=== PATIENT | female | born 2000 | race Two or more races ===

== ENCOUNTER → 2024-07-30 09:55 | Outpatient (CLI) | payer OTHER | END | disposition home or self-care (01) | LOC: PRENATAL 09:55 | PROVIDERS: ATTEND Obstetrics & Gynecology Maternal & Fetal Medicine | DX: O36.80X0 Pregnancy with inconclusive fetal viability, not applicable or unspecified (principal); Z36.82 Encounter for antenatal screening for nuchal translucency; O99.280 Endocrine, nutritional and metabolic diseases complicating pregnancy, unspecified trimester; Z14.8 Genetic carrier of other disease; Z3A.13 13 weeks gestation of pregnancy ==

== ENCOUNTER → 2024-08-11 | Emergency (ER) | payer OTHER ==
[~2024-08-11] VITALS: Ht 165.1 cm; Wt 67.6 kg
[~2024-08-11] MED LIST: LEVOTHYROXINE25 MCG; OBSTETRIX ONE1 EAC1
== END | disposition home or self-care (01) ==
LOC: ER 13:36
DX: Z34.90 Encounter for supervision of normal pregnancy, unspecified, unspecified trimester (principal); Z3A.16 16 weeks gestation of pregnancy; M54.50 Low back pain, unspecified

== ENCOUNTER 2024-09-06 11:11 | Emergency (ER) | payer OTHER ==
[~2024-09-06] VITALS: Ht 165.1 cm; Wt 69.4 kg
[2024-09-06] MEDS ORDERED: LAMICTAL100 M1 (12:13)
[2024-09-06 16:01] LABS: BASO % 0.2 % (0.1-1.2); EOS # 0.05 (0.04-0.54); EOS % 0.3 % (0.7-7.0); LYMPH # 1.41 (1.18-3.74); LYMPH % 8.6 % (19.3-53.1); MEAN PLATELET VOLUME 9.30 fl (9.4-12.4); MONO # 1.20 (0.24-0.82); MONO % 7.3 % (4.7-12.5); NEUT # 13.72 (1.56-6.13); NEUT % 83.2 % (34.0-71.1); RED CELL DISTRIBUTION WIDTH 12.7 % (11.6-14.4)
[2024-09-06 16:18] LABS: ALT/SGPT 29.0 U/L (12-78); AST/SGOT 22.0 U/L (15-37); BILIRUBIN TOTAL 0.33 mg/dL (0.3-1.2); BUN CREA RATIO 12.0 (7.0-25.0); CREATININE SERUM 0.51 mg/dL (0.55-1.02); GFR 146.93; GLOBULINA 3.9 G/DL (2.4-3.5); GLUCOSE FASTING 68.0 mg/dL (65-100); OSMOLALITY SERUM 277.0 MOSM/KG (275-295)
[2024-09-06 16:28] LABS: URINE APPEARANCE Cloudy; URINE BILIRRUBIN Negative (NEGATIVE); URINE BLOOD Negative; URINE COLOR Yellow; URINE GLUCOSE Negative (NEGATIVE); URINE LEUKOCYTE Trace; URINE NITRATE Negative; URINE PROTEIN Trace (NEGATIVE); URINE UROBILINOGEN 1.0 E.U./dl
[2024-09-06 16:32] LABS: URINE BACTERIA 9701.7 uL (0.0-1933); URINE EPITHELIAL CELLS 38.9 uL (0.0-38.8); URINE RBC 15.2 uL (0.0-20.8); URINE WBC 123.5 uL (0.0-23.2)
[2024-09-06 16:46] LABS: COVID-19 AG NEGATIVE (NEGATIVE)
[2024-09-06 17:03] LABS: URINE CAST 1.17 uL (0.0-1.40); URINE KETONE 80 (NEGATIVE)
[2024-09-06 17:06] LABS: URINE YEAST NEGATIVE /hpf
[2024-09-06] MEDS ORDERED: GILTUSS HONEY118 ML PO (18:06)
[2024-09-06] MEDS ORDERED: AMOX-CLAV 875-1 EACH PO (18:06)
== END 2024-09-06 19:05 | disposition home or self-care (01) ==
LOC: ER 11:11
PROVIDERS: General Practice
DX: Z34.90 Encounter for supervision of normal pregnancy, unspecified, unspecified trimester (principal); Z3A.19 19 weeks gestation of pregnancy; N39.0 Urinary tract infection, site not specified; J02.9 Acute pharyngitis, unspecified; E03.8 Other specified hypothyroidism; Z20.822 Contact with and (suspected) exposure to COVID-19

== ENCOUNTER 2024-09-15 08:58 | Outpatient (CLI) | payer OTHER ==
[~2024-09-15 08:58] MED LIST changes: +AMOX-CLAV 875-1 EACH PO; +GILTUSS HONEY118 ML PO; +LAMICTAL100 M1
== END 2024-09-15 08:59 | disposition home or self-care (01) ==
LOC: PRENATAL 08:58
DX: O44.00 Complete placenta previa NOS or without hemorrhage, unspecified trimester (principal); O99.280 Endocrine, nutritional and metabolic diseases complicating pregnancy, unspecified trimester; Z3A.20 20 weeks gestation of pregnancy

== ENCOUNTER 2024-11-07 09:01 | Outpatient (CLI) | payer OTHER | END 2024-11-07 09:06 | disposition home or self-care (01) | LOC: PRENATAL 09:01 | PROVIDERS: ATTEND Obstetrics & Gynecology Maternal & Fetal Medicine | DX: O26.849 Uterine size-date discrepancy, unspecified trimester (principal); O99.280 Endocrine, nutritional and metabolic diseases complicating pregnancy, unspecified trimester; Z3A.28 28 weeks gestation of pregnancy ==

== ENCOUNTER → 2024-12-19 07:51 | Outpatient (CLI) | payer OTHER | END | disposition home or self-care (01) | LOC: PRENATAL 07:51 | PROVIDERS: ATTEND Obstetrics & Gynecology Maternal & Fetal Medicine | DX: O26.849 Uterine size-date discrepancy, unspecified trimester (principal); O36.8130 Decreased fetal movements, third trimester, not applicable or unspecified; O99.280 Endocrine, nutritional and metabolic diseases complicating pregnancy, unspecified trimester; Z3A.34 34 weeks gestation of pregnancy ==

== ENCOUNTER 2025-01-20 13:30 | Inpatient (IN) | payer OTHER ==
[~2025-01-20] VITALS: Ht 162.6 cm; Wt 80.7 kg
[2025-01-20 14:50] LABS: BASO % 0.2 % (0.1-1.2); EOS # 0.04 (0.04-0.54); EOS % 0.5 % (0.7-7.0); LYMPH # 2.31 (1.18-3.74); LYMPH % 27.5 % (19.3-53.1); MEAN PLATELET VOLUME 10.10 fl (9.4-12.4); MONO # 0.64 (0.24-0.82); MONO % 7.6 % (4.7-12.5); NEUT # 5.37 (1.56-6.13); NEUT % 64.0 % (34.0-71.1); RED CELL DISTRIBUTION WIDTH 12.4 % (11.6-14.4)
[2025-01-20 14:52] LABS: URINE APPEARANCE Clear; URINE BILIRRUBIN Negative (NEGATIVE); URINE BLOOD Trace; URINE COLOR Yellow; URINE GLUCOSE Negative (NEGATIVE); URINE KETONE Trace (NEGATIVE); URINE LEUKOCYTE Negative; URINE NITRATE Negative; URINE PROTEIN Trace (NEGATIVE); URINE UROBILINOGEN 1.0 E.U./dl
[2025-01-20 14:53] LABS: URINE BACTERIA 1410.0 uL (0.0-1933); URINE EPITHELIAL CELLS 15.8 uL (0.0-38.8); URINE RBC 6.4 uL (0.0-20.8); URINE WBC 22.3 uL (0.0-23.2)
[2025-01-20 15:03] LABS: URINE CAST 0.14 uL (0.0-1.40)
[2025-01-20 15:15] LABS: INR 0.94
[2025-01-20 16:01] LABS: ALT/SGPT 22.0 U/L (12-78); AST/SGOT 21.0 U/L (15-37); BILIRUBIN TOTAL 0.26 mg/dL (0.3-1.2); BUN CREA RATIO 13.0 (7.0-25.0); CREATININE SERUM 0.53 mg/dL (0.55-1.02); GFR 139.44; GLOBULINA 3.6 G/DL (2.4-3.5); GLUCOSE FASTING 81.0 mg/dL (65-100); OSMOLALITY SERUM 275.0 MOSM/KG (275-295)
[2025-01-27 07:12] VITALS: BP 121/88
[2025-01-27] MEDS ORDERED: MISOPROSTOL 25 MCG/4 ML GEL.W.APPL VAG ONE ×3 (07:45→21:15)
[2025-01-27 08:13] LABS: BASO % 0.2 % (0.1-1.2); EOS # 0.08 (0.04-0.54); EOS % 0.7 % (0.7-7.0); LYMPH # 2.82 (1.18-3.74); LYMPH % 25.6 % (19.3-53.1); MEAN PLATELET VOLUME 10.60 fl (9.4-12.4); MONO # 0.81 (0.24-0.82); MONO % 7.3 % (4.7-12.5); NEUT # 7.26 (1.56-6.13); NEUT % 65.8 % (34.0-71.1); RED CELL DISTRIBUTION WIDTH 12.3 % (11.6-14.4)
[2025-01-27 08:19] LABS: URINE APPEARANCE Cloudy; URINE BILIRRUBIN Negative (NEGATIVE); URINE BLOOD Small; URINE COLOR Yellow; URINE GLUCOSE Negative (NEGATIVE); URINE KETONE Negative (NEGATIVE); URINE LEUKOCYTE Negative; URINE NITRATE Negative; URINE PROTEIN Trace (NEGATIVE); URINE UROBILINOGEN 0.2 E.U./dl
[2025-01-27 08:22] LABS: URINE CAST 1.75 uL (0.0-1.40); URINE EPITHELIAL CELLS 61.2 uL (0.0-38.8); URINE RBC 6.8 uL (0.0-20.8); URINE WBC 82.9 uL (0.0-23.2)
[2025-01-27] MEDS ORDERED: SYNTHROID50 MCG PO (08:24)
[2025-01-27] MEDS ORDERED: PRENATAL TABLE1 EAC1 PO (08:26)
[2025-01-27 08:50] LABS: ALT/SGPT 22.0 U/L (12-78); AST/SGOT 21.0 U/L (15-37); BILIRUBIN TOTAL 0.25 mg/dL (0.3-1.2); BUN CREA RATIO 18.0 (7.0-25.0); CREATININE SERUM 0.45 mg/dL (0.55-1.02); GFR 168.42; GLOBULINA 3.6 G/DL (2.4-3.5); GLUCOSE FASTING 86.0 mg/dL (65-100); LDH 196.0 U/L (84-246); OSMOLALITY SERUM 279.0 MOSM/KG (275-295)
[2025-01-27 09:02] LABS: INR 0.96
[2025-01-27] MEDS ORDERED: MISOPROSTOL 25 MCG/4 ML GEL.W.APPL ONE (10:59)
[2025-01-27 11:11] VITALS: BP 126/80
[2025-01-27 15:35] VITALS: BP 124/79
[2025-01-27 19:19] VITALS: BP 122/68
[2025-01-27 23:21] VITALS: BP 122/71
[2025-01-28 04:51] VITALS: BP 125/78
[2025-01-28 07:47] VITALS: BP 126/69
[2025-01-28] MEDS ORDERED: PATIENTS OWN MEDICATION (MEDICAMENTO EN PISO) PO SCH (09:00)
[2025-01-28] MEDS ORDERED: LEVOTHYROXINE SODIUM 50 MCG TABLET PO NR (09:30)
[2025-01-28] MEDS ORDERED: MISOPROSTOL 25 MCG/4 ML GEL.W.APPL VAG ONE (11:45)
[2025-01-28 12:05] VITALS: BP 123/81
[2025-01-28 15:19] VITALS: BP 121/77
[2025-01-28] MEDS ORDERED: CEFAZOLIN SODIUM 1,000 MG VIAL IV ONE (17:45)
[2025-01-28] MEDS ORDERED: ERYTHROMYCIN BASE OPHT 1GM EACH TUBE OP ONE (20:22)
[2025-01-28] MEDS ORDERED: OXYTOCIN 10 UNITS/ML VIAL ONE (20:22)
[2025-01-28] MEDS ORDERED: CEFAZOLIN SODIUM 1,000 MG VIAL ONE ×2 (20:25→20:44)
[2025-01-29] MEDS ORDERED: OXYTOCIN 10 UNITS/ML VIAL ONE (00:12)
[2025-01-29] MEDS ORDERED: NALOXONE HCL 0.4 MG/ML AMPUL IV PRN (00:15)
[2025-01-29] MEDS ORDERED: OXYTOCIN 1,000 ML IV SCH (00:15)
[2025-01-29] MEDS ORDERED: PROMETHAZINE HCL 25 MG/ML AMPUL IM PRN (01:00)
[2025-01-29 01:40] VITALS: BP 130/80
[2025-01-29] MEDS ORDERED: LEVOTHYROXINE SODIUM 50 MCG TABLET PO SCH (06:00)
[2025-01-29] MEDS ORDERED: MORPHINE SULFATE 4 MG/ML CARTRIDGE IV PRN (06:00)
[2025-01-29 08:00] VITALS: BP 124/82
[2025-01-29] MEDS ORDERED: DOCUSATE SODIUM 100MG CAP PO SCH (09:00)
[2025-01-29] MEDS ORDERED: SIMETHICONE 125 MG CAPSULE PO SCH (09:00)
[2025-01-29] MEDS ORDERED: PNV,CALCIUM 72/IRON/FOLIC ACID 1 TAB TABLET PO SCH (09:00)
[2025-01-29 09:51] LABS: BASO % 0.3 % (0.1-1.2); EOS # 0.02 (0.04-0.54); EOS % 0.2 % (0.7-7.0); LYMPH # 1.90 (1.18-3.74); LYMPH % 16.7 % (19.3-53.1); MEAN PLATELET VOLUME 10.70 fl (9.4-12.4); MONO # 0.83 (0.24-0.82); MONO % 7.3 % (4.7-12.5); NEUT # 8.55 (1.56-6.13); NEUT % 75.1 % (34.0-71.1); RED CELL DISTRIBUTION WIDTH 12.3 % (11.6-14.4)
[2025-01-29] MEDS ORDERED: MEASLES,MUMPS,RUBELLA VACC/PF 1 VIAL VIAL SUBCUTANEO ONE (12:00)
[2025-01-29] MEDS ORDERED: ACETAMINOPHEN 325 MG TABLET PO PRN (12:00)
[2025-01-29] MEDS ORDERED: FF) RHO(D) IMMUNE GLOBULIN (POM) IM ONE (12:00)
[2025-01-29] MEDS ORDERED: OxyCODONE HCL 5 MG TABLET (ROXICODONE) PO PRN (12:00)
[2025-01-29] MEDS ORDERED: 0.9 % SODIUM CHLORIDE 1,000 ML IV SCH (20:00)
[2025-01-29 20:28] VITALS: BP 135/88
[2025-01-29] MEDS ORDERED: PROMETHAZINE HCL 25 MG/ML AMPUL IV SCH (21:00)
[2025-01-29] MEDS ORDERED: FAMOTIDINE/PF 20 MG/2 ML VIAL IV SCH (21:00)
[2025-01-30] VITALS: BP 117/78
[2025-01-30 08:53] VITALS: BP 131/94
== END 2025-01-30 17:03 | disposition home or self-care (01) | DRG 788 ==
LOC: LDR 01-27 06:39 → OB/GYN 01-28 23:01
PROVIDERS: Obstetrics & Gynecology; ADMIT Student in an Organized Health Care Education/Training Program; ATTEND Student in an Organized Health Care Education/Training Program
PROC: 3E0P7VZ Introduction of Hormone into Female Reproductive, Via Natural or Artificial Opening (ICD-10-PCS; 2025-01-27)
PROC: 4A1HXCZ Monitoring of Products of Conception, Cardiac Rate, External Approach (ICD-10-PCS; 2025-01-27)
PROC: 3E033VJ Introduction of Other Hormone into Peripheral Vein, Percutaneous Approach (ICD-10-PCS; 2025-01-28)
PROC: 10D00Z1 Extraction of Products of Conception, Low, Open Approach (ICD-10-PCS; principal; 2025-01-28 23:45)
DX: O61.0 Failed medical induction of labor (principal); O13.4 Gestational [pregnancy-induced] hypertension without significant proteinuria, complicating childbirth; Z3A.39 39 weeks gestation of pregnancy; Z37.0 Single live birth